=== PATIENT | male | born 1950 | race Caucasian/White ===

== ENCOUNTER 2017-05-06 10:06 | Emergency (ER) | payer MEDICARE, OTHER ==
--- NOTE | 2017-05-06 11:49 | XRAY Preliminary Report ---
Exam: XR Chest 2 View PA/LAT Impression: No evidence of infiltrate. [facility] SITE ID: [id number]
--- NOTE | 2017-05-06 11:51 | XRAY Report ---
EXAM: CHEST RADIOGRAPHY EXAM DATE: 05/06/2017 11:25 AM. CLINICAL HISTORY: Right lower chest pain. COMPARISON: None. TECHNIQUE: 2 views. FINDINGS: There are postoperative changes consistent with median sternotomy. The heart is not enlarged. There i s no focal infiltrate, pleural effusion or pneumothorax seen. Impression: No evidence of infiltrate. [facility] Referring Provider Line: [phone] SITE ID: [id number]
--- NOTE | 2017-05-06 11:56 | ED Physician Documentation ---
PD HPI CHEST PAIN - Stated complaint Stated Complaint: R SIDE RIB PX - Chief complaint Chief Complaint: Back Pain - History obtained from History obtained from: Patient - History of Present Illness Timing - duration: Days (5) Timing - details: Still present Quality: Aching Location: Right chest Improved by: Other medication (oxycodone) Worsened by: Movement, Position Similar symptoms before: Has not had sx before - Additional information Additional information: The patient is a 66-year-old male who presents with right lower chest pain that started 5 days ago after lifting sheets of plywood into place. His pain is worse with deep inspiration and with certain positions. He has experienced mild improvement after taking oxycodone. He denies cough or shortness of breath. He denies history of similar symptoms in the past. On further review of systems he reports a 30 pound weight loss over the past 6 months. He is scheduled for a GI workup next week as part of his outpatient evaluation for the recent weight loss. Review of Systems Constitutional: denies: Fever Nose: denies: Congestion Throat: denies: Sore throat Cardiac: reports: Chest pain / pressure. denies: Palpitations Respiratory: denies: Dyspnea, Cough GI: denies: Abdominal Pain, Nausea, Vomiting : denies: Dysuria Skin: denies: Rash Musculoskeletal: denies: Back pain, Extremity swelling Neurologic: denies: Focal weakness, Numbness, Headache Endocrine: reports: Weight loss PD PAST MEDICAL HISTORY - Past Medical History Cardiovascular: Hypertension, High cholesterol Respiratory: None Neuro: None Endocrine/Autoimmune: Type 2 diabetes Psych: Depression - Present Medications Home Medications: Ambulatory Orders Medication Instructions Recorded Confirmed Aspirin 81 mg PO DAILY 05/06/17 05/06/17 Atorvastatin Calcium [Lipitor] 80 mg PO DAILY 05/06/17 05/06/17 Ferrous Sulfate 325 mg PO DAILY 05/06/17 05/06/17 Fluoxetine HCl 20 mg PO DAILY 05/06/17 05/06/17 Insulin Regular Human [NovoLIN R] 18 units SQ TID 05/06/17 05/06/17 Losartan Potassium [Cozaar] 100 mg PO DAILY 05/06/17 05/06/17 Metformin HCl [Glucophage Xr] 500 mg PO DAILY 05/06/17 05/06/17 Metoprolol Tartrate [Lopressor] 100 mg PO BID 05/06/17 05/06/17 Omeprazole 40 mg PO DAILY 05/06/17 05/06/17 amLODIPine [Norvasc] 5 mg PO DAILY 05/06/17 05/06/17 hydroCHLOROthiazide [Hydrodiuril] 25 mg PO DAILY 05/06/17 05/06/17 - Allergies Allergies/Adverse Reactions: Allergies Allergy/AdvReac Type Severity Reaction Status Date / Time No Known Drug Allergies Allergy Verified 05/06/17 10:14 - Social History Does the pt smoke?: Yes Smoking Status: Former smoker PD ED PE NORMAL - Vitals Vital signs reviewed: Yes (normal) - General General: Alert and oriented X 3, Well developed/nourished - HEENT HEENT: Atraumatic, EOMI, Pharynx benign - Neck Neck: No adenopathy, No JVD - Cardiac Cardiac: RRR, No murmur - Respiratory Respiratory: No respiratory distress, Clear bilaterally, Other (There is mild tenderness to palpation of the right lower chest wall over the lower intercostal segments in the anterior axillary line. There is no bony step-off palpated, and no ecchymosis.) - Abdomen Abdomen: Soft, Non tender, No organomegaly - Back Back: No CVA TTP, No spinal TTP - Derm Derm: No rash - Extremities Extremities: No edema, No calf tenderness / cord - Neuro Neuro: Alert and oriented X 3, No motor deficit, No sensory deficit Results - Vitals Vitals: Vital Signs - 24 hr 05/06/17 05/06/17 10:11 12:12 Temperature 36.0 C L Heart Rate 63 78 Respiratory 16 16 Rate Blood Pressure 128/63 107/72 O2 Saturation 99 97 Oxygen O2 Source Room air - Rads (name of study) Chest x-ray Radiology: Prelim report reviewed, EMP read contemporaneously, See rad report ( No evidence of infiltrate.) PD MEDICAL DECISION MAKING - ED course Complexity details: reviewed results, re-evaluated patient, considered differential, d/w patient ED course: The patient's presentation is most consistent with strain of the right chest wall musculature. Chest x-ray reveals no evidence of pulmonary abnormality or abnormal rib architecture. I doubt pulmonary embolus. I discussed with the patient the expected course of healing, symptomatic treatment and outpatient follow-up, as well as potentially worrisome signs or symptoms that should prompt reevaluation in the emergency department. Departure - Departure Disposition: 01 Home, Self Care Clinical Impression: Chest wall pain Condition: Stable Instructions: ED Strain Chest Wall Follow-Up: Surya Russ MD [Primary Care Provider] - Comments: 1. Apply ice pack to the sore area intermittently for the next 3 days. 2. Continue using oxycodone as previously prescribed, if needed for pain. 3. Follow-up with your primary physician as planned. 4. Return to the emergency department if you develop increasing chest pain, shortness of breath, or otherwise worsening symptoms. Discharge Date/Time: 05/06/17 12:12
[2017-05-06 12:12] VITALS: BP 107/72
== END 2017-05-06 12:12 | disposition home or self-care (01) ==
LOC: ED 10:06
DX: R07.89 Other chest pain (principal); I10 Essential (primary) hypertension; E11.9 Type 2 diabetes mellitus without complications; Z79.84 Long term (current) use of oral hypoglycemic drugs; Z79.82 Long term (current) use of aspirin; Z79.4 Long term (current) use of insulin; Z87.891 Personal history of nicotine dependence
CPT/HCPCS: 71020; 99283

== ENCOUNTER 2017-07-21 18:00 | Outpatient (CLI) | payer MEDICARE ==
--- NOTE | 2017-07-21 19:26 | CONSULTATION NOTE ---
Palliative Care Consultation - Referral Referring Provider: Dr Rendon Time of Visit: 18:00 Referral setting: [facility] ([facility]) - Information Sources History obtained from: Patient, Caregiver Exam limitations: No limitations - History of Present Illness Brief History of Present Illness: Thank you, Dr. Rendon, for asking the palliative care consult service to be involved in the care of your patient. 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 This is a 67-year-old gentleman who was recently diagnosed with stage IV esophageal cancer, who was told his life expectancy was one year or less. He transferred on 07/15/17 to [facility] from [facility] in [place]. He has had spinal surgery involving 4 vertabrae to relieve pressure from a mass. He has been through 3 rounds of radiation, and stopped the third round due to pain and discomfort. He does not want to go through any more rounds of radiation, though he is still open to other forms of treatment. He does not know who his oncologist is; [place]. His DPOA and friend who he lives with, Lida Oliver, keeps track of everything medical. He is experiencing high levels of pain, rating it at 5/10 when its "good," but 10/10 when it spikes. It increases with PT. He has a fentanyl patch of 100mcg, and has been using 180mg of liquid morphine daily for the past several days ( 20mg about every 1-2 hours). He appears quite anxious about the pain, and does not know if the fentanyl patch is helping the pain, but does get relief from 20mg morphine and asked nursing to administer it every hour. He fears that it will increase and so he wants to get it regularly. His last dose was about an hour ago, and he does not appear to be drowsy, and his breathing and heartrate are normal. He says he has no appetite, and also has had no bowel movements for two weeks, but nursing confirmed he had a movement 5 days ago. He is participating in PT with the goal of being mobile enough to get in his wheelchair and go to his house to see his cat. He is diabetic but no longer on insulin or metformin. He is eating much less than previously. BG checks were reduced from TID to daily. Nursing reports his fasting BG in the morning is about 125. Information obtained from patient, nursing staff, and EMR chart notes. Medical/Surgical History - Past Medical History Cardiovascular: reports: Hypertension, High cholesterol Respiratory: reports: None Neuro: reports: None Endocrine/Autoimmune: reports: Type 2 diabetes Psych: reports: Depression MRSA Hx?: No Medications/Allergies - Medications Home Medications: Ambulatory Orders Medication Instructions Recorded Confirmed Fluoxetine HCl 20 mg PO DAILY 05/06/17 07/22/17 Guaifenesin [Mucinex] 600 mg PO DAILY 07/22/17 07/22/17 Hyoscyamine Sulfate 0.125 mg PO Q4H PRN 07/22/17 07/22/17 LORazepam [Ativan] 0.5 mg PO Q2H PRN 07/22/17 07/22/17 Magnesium Hydroxide [Milk of 30 ml PO DAILY PRN 07/22/17 07/22/17 Magnesia] Medpass 2.0 60 ml PO BID 07/22/17 Morphine Sulfate [Morphine Sulf 0.25 ml PO Q1H PRN 07/22/17 07/22/17 Oral (Roxanol)] Morphine Sulfate [Morphine Sulf 0.5 ml PO Q1H PRN 07/22/17 07/22/17 Oral (Roxanol)] Morphine Sulfate [Morphine Sulf 1 ml PO Q1H PRN 07/22/17 07/22/17 Oral (Roxanol)] Senna [Senokot] 1 - 2 tab PO DAILY PRN 07/22/17 07/22/17 fentaNYL 100 MCG PATCH [Duragesic 1,000 mcg TD MDD Q72hr 07/22/17 100mcg patch] - Allergies Allergies/Adverse Reactions: Allergies Allergy/AdvReac Type Severity Reaction Status Date / Time No Known Drug Allergies Allergy Verified 05/06/17 10:14 Palliative Care Pain: Location (back and epigastric region), Severity (baseline around 5/10, spikes to 10/10, taking 20mg of prn morphine about every 1-2 hours, along with a 100mcg fentanyl patch) Drowsiness: Mild (1-3) Nausea: None Anxiety: Mild (1-3) Dyspnea: None Anorexia: Moderate (4-6) ("no appetite," which may be pain related) Insomnia: Other (sometimes he sleeps well, but it depends on the pain) Feelings of wellbeing/Perceived Quality of Life: Worsening (pain level is the main barrier to perceiving a good quality of life) Performance Status: Previous level of function prior to this episode: Previous to 05/06/17 when he went to the ER for right-side rib pain exacerbated with lifting plywood sheets, he was relatively healthy. Current level of functioning: High pain levels, non-ambulatory, participates in PT which increases pain levels. Palliative Care Performance Status: 60% - Palliative Care Discussion: Who is present: The patient and myself. Surrogate decision maker: Friend/partner/DPOA Hailey Norris [phone]. Patient/Family understanding of the illness: Does have insight and understanding of the seriousness of his disease and that the prognosis is grim, one year or less. The diagnosis of cancer was totally unexpected, and he is still coming to terms with this life-changing development. He is very grateful his partner Hailey is by his side, and does not know what he would do without her. Presently the amount of pain he is in takes precedence over the deeper meaning of his cancer diagnosis, and its prognosis. He seems to have a level of acceptance and rational evaluation of his situation , and of being here in a nursing facility, and what he can realistically expect and achieve in terms of life quality. Information preferences: Communicate both with patient and his partner, Hailey. Most important goals: Get pain under control so he can continue physical therapy and regain enough mobility and strength to be mobile by wheelchair. He wants to be able to visit his house and hold his cat. Patient/family concerns: His main concern is controlling the pain. He is considering not undergoing further radiation, but is open to other treatment options. However, he does not want to unnecessarily prolong his life. We discussed various options for pain control. I recommended increasing his baseline pain control either by increasing the fentanyl patch or by adding a long-acting morphine TID, and continuing to use morphine prn for breakthrough pain. Since he does not want to take more pills, and fentanyl offers a steady dose of opioid, he agreed that increasing the fentanyl patch made sense. 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 The prognosis is grim, less than one year. His symptom burden is quite high currently, with pain and opioid-induced constipation, and his first goal is getting the pain under control. He is motivated to participate in PT to regain his mobility so he can enjoy visiting his house and his cat. Since he is open to further treatment, he is not currently a candidate for Hospice and is also at the SNF under Medicare, and so the Hospice benefit would not be covered while he is at [facility]. Recommendations/Counseling Done: 1. Pain from stage IV esophageal cancer, mets to bone and spine: Uncontrolled on 100mcg of fentanyl, and using approximately 180mg of liquid morphine every 24 hours (total MED of fentanyl + morphine = about 380mg). 100mcg fentanyl has a MED equivalent of about 200mg morphine, which is close to the prn morphine he is using every 24 hours. Hence increase the fentanyl by 100 mcg, to 200mcg total, so Fentanyl is now at 400mg MED. The intent is to reduce his usage of the prn morphine. Monitor for over-sedation and respiratory depression. Decrease the morphine prn dosing from 20mg to 5-10mg. 2. Constipation, opioid induced: No bowel movement in 24 hours. Start Miralax 17g in 4-8 oz liquid daily and Senna 17.2mg daily. 3. Anxiety: Lorazepam 2mg/mL. Use 0.25-1mg (0.25-05mL) bucally every 2-4 hours PRN 4. Advanced care planning: POLST in place: DNR, comfort only. Do not prolong life unnecessarily. Goals are to reduce pain and gain mobility to go home and visit his cat. He does not want to unnecessarily prolong his life, but may consider further treatment, so Hospice is not currently appropriate. Also it is not covered while he in in a half-way facility. Will revisit goals as disease progresses. Time Spent: 60 minutes with greater than 50% of this done in counseling and coordination of care, weighing benefits and burdens of different pain treatment options, and providing anticipatory guidance.
== END 2017-07-21 18:01 | disposition home or self-care (01) ==
LOC: PC 18:00
PROVIDERS: ATTEND Nurse Practitioner
DX: Z51.5 Encounter for palliative care (principal); G89.3 Neoplasm related pain (acute) (chronic); C15.9 Malignant neoplasm of esophagus, unspecified; C79.51 Secondary malignant neoplasm of bone; K59.03 Drug induced constipation; T40.2X5D Adverse effect of other opioids, subsequent encounter; F41.9 Anxiety disorder, unspecified; Z79.891 Long term (current) use of opiate analgesic; E11.9 Type 2 diabetes mellitus without complications; F32.9 Major depressive disorder, single episode, unspecified; R63.0 Anorexia; Z66 Do not resuscitate
CPT/HCPCS: 99306

== ENCOUNTER 2017-07-26 09:00 | Outpatient (CLI) | payer MEDICARE, OTHER ==
[2017-07-26 19:55] LABS: BASOPHILS % (AUTO) 0.4 %; EOSINOPHILS # (AUTO) 0.4 10^3/uL (0.0-0.7); EOSINOPHILS % (AUTO) 3.3 %; HCT - HEMATOCRIT 38.6 % (42.0-52.0); HGB - HEMOGLOBIN 12.6 g/dL (14.0-18.0); LYMPHOCYTES # (AUTO) 1.4 10^3/uL (1.5-3.5); LYMPHOCYTES % (AUTO) 12.4 %; MEAN CORPUSCULAR HEMOGLOBIN 24.4 pg (27.0-31.0); MEAN CORPUSCULAR HGB CONC 32.6 g/dL (32.0-36.0); MEAN PLATELET VOLUME 7.6 fL (7.4-11.4); MONOCYTES # (AUTO) 0.8 10^3/uL (0.0-1.0); MONOCYTES % (AUTO) 7.1 %; NEUTROPHILS # (AUTO) 8.7 10^3/uL (1.5-6.6); NEUTROPHILS % (AUTO) 76.8 %; NUCLEATED RED BLOOD CELLS AUTO 0.1 /100WBC; RED BLOOD COUNT 5.15 10^6/uL (4.70-6.10); RED CELL DISTRIBUTION WIDTH 21.6 % (12.0-15.0); UNCORRECTED WHITE BLOOD COUNT 11.4 x10^3/uL; WHITE BLOOD COUNT 11.4 x10^3/uL (4.8-10.8)
[2017-07-26 19:59] LABS: CALCIUM 8.7 mg/dL (8.5-10.3); CREATININE 0.5 mg/dL (0.6-1.2); POTASSIUM 3.1 mmol/L (3.5-5.0)
[2017-07-26 20:15] LABS: PLATELET ESTIMATE, MANUAL NORMAL (130-450,000) (NORMAL); PLATELET MORPHOLOGY NORMAL APPEARANCE (NORMAL); WBC MORPHOLOGY (MULTIPLE) NORMAL APPEARANCE (NORMAL)
== END 2017-07-26 09:01 | disposition home or self-care (01) ==
LOC: LAB.R 09:00
DX: C15.9 Malignant neoplasm of esophagus, unspecified (principal); D50.9 Iron deficiency anemia, unspecified; E44.0 Moderate protein-calorie malnutrition
CPT/HCPCS: 80048; 85025

== ENCOUNTER 2017-07-26 13:00 | Outpatient (CLI) | payer MEDICARE ==
--- NOTE | 2017-07-26 17:20 | PROVIDER PROGRESS NOTE ---
Palliative Care Follow Up - Referral Referring Provider: Dr Rafiq Rendon Time of Visit: 13:00 Referral setting: Senior Living Facility ([facility]) - Information Sources History obtained from: Patient, Family, Caregiver Exam limitations: Clinical condition (Patient groggy.) - History of Present Illness Update Brief HPI Update: [id number] Due to unstageable pressure ulcer on coccyx as a result of Stage IV metastasized esophageal cancer with sequelae of functional decline, incontinence , and nutritional compromise, patient is completely immobile in bed and requires an AP mattress to promote healthy skin integrity as well as reduce occurrence of decubitus ulcers while in bed. See Physical Exam section for details of wounds. This is a 67-year-old gentleman who was diagnosed in May 2017 with stage IV esophageal cancer, metastasized to bone, spine, lungs, and told his prognosis was 1 year or less. He was establishing care with Dr Girish Brooks of [facility] in [place] at which point he reported minimal PO intake, abdominal pain, and dysphagia and was admitted for gastrostomy tube placement, which was achieved without complication, however, he later developed some high residuals. Tube feedings were held and then resumed with reasonable tolerance. He continued to have ongoing severe pain in his chest and abdomen. Radiation oncology was consulted and he was started on XRT for two treatments (06/27 and 06/28). After the first episode of radiation he had worsening LE weakness and low back pain with urinary retention, this prompted spinal imagining which showed diffuse metastasis involving the T-spine with cord compression. On 06/29 he underwent surgery for T6-T8 laminectomy/ decompression and excision of an epidural mass. He was initially discharged to [facility] in [place], and from there transferred on 07/15/17 to [facility]. He continues to experience pain in his thorax, this is after I doubled the fentanyl patches from 100mcg to 200mcg. He was previously on 100mcg and using around 180mg of prn morphine daily at 20mg (1mL) dosing at a time. After increasing the fentanyl, his morphine usage is lower, he is being given approximately 70-100mg morphine daily, in 10mg doses. However, he reports the breakthrough pain is not controlled. The description is left side of torso has shooting pain which morphine relieves, the R side is a constant pain. He is unable to say how much fentanyl is relieving his pain, but he does get pain relief with morphine, for the shooting pains. The morphine is given either buccally or sublingual, he is taking all his medications by mouth currently, per Nursing, not via PEG. He continues to eat very little, just protein shakes, and is taking very little of that. The facility has an order for tube flushing with 150ml of water every 4 hours, so nearly 1 liter every 24 hours. He has lost 14 pounds in two weeks ( 188 lbs on 07/08 and 174.9 lbs on 07/21). The box spring upholsterer and PYROTECHNIST spent a considerable amount of time with him today, discussing his tube feeding, diet, weight loss. He did express that when he was given tube feedings prior to coming here, he felt it was forced feeding and out of his control; this was even though he had requested a PEG tube. Shell Press Operator assured him that they will follow his wishes here. He is in agreement to have the protein shakes, but continues to refuse any other food. He has repeatedly stated he does not want any more food than that, he cannot tolerate the thought of food, he denies nausea, and does not want to be fed by tube. At other times, though, he has told nursing he would agree to increased tube feeding. This vascillation is also observed in his indecisiveness about pursuing further treatment. He has mentioned to several different people (box spring upholsterer, nursing) some interest in physician-assisted suicide. He mentioned this to me today. When questioned about what he actually wanted, it is not but relief from pain. I asked him if his pain was under control, would he still want to , and he said no. He is still participating in physical therapy and is very weak. Yesterday he was not able to get up from a reclining position. Today he was able to use the [id number] transfer machine and stay upright for 2 minutes, which was some improvement. However, his lower extremities continue to be very weak. The sutures on his spinal incision were removed 07/25, and there is some dehiscence (2cm x 0.5cm) at the lower end of the incision, with redness and tenderness surrounding it. Nursing also reports pink discoloration on bilateral heels and a small coccyx wound. Information obtained from patient, nursing staff, and EMR chart notes from [facility]. Social History - Living Situation Living arrangement: longterm ([facility]) Living Situation: With caregiver(s) Support System: Hailey Oliver, his life partner, and her sister and brother in law, Italo and Carlin Solo. Medications/Allergies - Medications Home Medications: Ambulatory Orders Medication Instructions Recorded Confirmed Fluoxetine HCl 20 mg PO DAILY 05/06/17 07/22/17 Guaifenesin [Mucinex] 600 mg PO DAILY 07/22/17 07/22/17 Hyoscyamine Sulfate 0.125 mg PO Q4H PRN 07/22/17 07/22/17 LORazepam [Ativan] 0.5 mg PO Q2H PRN 07/22/17 07/22/17 Magnesium Hydroxide [Milk of 30 ml PO DAILY PRN 07/22/17 07/22/17 Magnesia] Medpass 2.0 60 ml PO BID 07/22/17 Morphine Sulfate [Morphine Sulf 0.25 ml PO Q1H PRN 07/22/17 07/22/17 Oral (Roxanol)] Morphine Sulfate [Morphine Sulf 0.5 ml PO Q1H PRN 07/22/17 07/22/17 Oral (Roxanol)] Morphine Sulfate [Morphine Sulf 1 ml PO Q1H PRN 07/22/17 07/22/17 Oral (Roxanol)] Senna [Senokot] 1 - 2 tab PO DAILY PRN 07/22/17 07/22/17 Fentanyl [Fentanyl 100mcg patch] 200 mcg TD Q72H 07/26/17 07/26/17 - Allergies Allergies/Adverse Reactions: Allergies Allergy/AdvReac Type Severity Reaction Status Date / Time No Known Drug Allergies Allergy Verified 05/06/17 10:14 Review of Systems - Constitutional Constitutional: reports: Weakness, Poor appetite, Weight loss - Ears, Nose & Throat Ears, Nose & Throat: reports: Mouth lesions (dry, chapped lips) - Cardiovascular Cariovascular: reports: Chest pain - Gastrointestinal Gastrointestinal: reports: Constipation, Poor appetite. denies: Nausea - Musculoskeletal Musculoskeletal: reports: Back pain, Other (Pain in thorax: shooting pain on L side, constant pain on R side) - Neurological Neurological: reports: General weakness Physical Examination - Vital Signs Temperature: 96.3 C Pulse Rate: 101 O2 Saturation: 92 Blood Pressure: 155/82 - Physical Exam General Appearance: positive: Moderate distress (in pain), Anxious, Other (Mild to moderate sedation from opioid intake, still grimaces and clenches with pain when moved or repositioned.) ENT: positive: Dry mucous membranes Neck: positive: No JVD Respiratory: positive: Breath sounds nml Cardiovascular: positive: Regular rate & rhythm, Tachycardia Abdomen: positive: Non-tender Skin: positive: Other (Coccyx wound 1 x 0.5 x 0.2cm white wound bed,open wound intact with pink blanchable tissue dianna-wound. Bilateral blanchable pink heels. Dehiscence and redness on lower portion of spinal incision wound.) Extremities: positive: No pedal edema Neurologic/Psychiatric: positive: Disoriented to time, Weakness, Slurred/abnml speech (mumbles; difficult to hear and understand), Depressed mood/affect (flat affect) Palliative Care - POLST Patient has POLST: Yes POLST Status: DNR, Comfort Measures Pain: Pain unchanged (Still complains of pain and wants morphine every 1-2 hours. PRN dosing has been less, 10mg instead of 20mg) Drowsiness: Moderate (4-6) Nausea: None Anxiety: Mild (1-3) Dyspnea: Mild (1-3) (caused by pain) Anorexia: Severe (7-10) (no appetite, hardly eating anything) Insomnia: Sleeps poorly (slept poorly last night) Constipation: Yes Feelings of wellbeing/Perceived Quality of Life: Comment (Main goal is to decrease the pain) Performance Status: Current level of functioning: Declining, with continued weakness in lower extremities, still participates in PT as best he can. Pain levels still high; morphine dosage is lower than previous usage levels, but likely because [facility] nursing is giving him less than before (10mg, not 20mg). He is eating almost nothing and has lost significant weight, including 14 lbs since Jul 08. He is around 175 lbs; he used to be well over 200 lbs. At this rate, life expectancy would be weeks to months. Palliative Care Performance Status: 60% - Palliative Care Discussion: Who is present: The patient and myself, and temporary DPOA Italo Solo and her . Surrogate decision maker: Friend/partner/DPOA Hailey Norris [phone]. She is in [place] for two weeks. During her absence, her sister is the acting DPOA from 07/25/17 to 08/07/17: Italo Solo: home [phone]. . Patient/Family understanding of the illness: Patient does have some insight and understanding of the seriousness of his disease, but may not be realistic about the rapidity of his decline or life expectancy, which is likely weeks. He vascillates between denying he will pursue further treatment and saying he will consider it once his pain is under control. Unrealistic regarding the connection between nutritional/caloric requirements, refusing tube feeding and rapidly increasing weakness and functional decline. Pain control is the high priority. His DPOA understands his situation is terminal and recognizes that his decline has been very rapid. Offered supportive counseling. Most important goals: Pain control. Results - Lab Results Lab results reviewed: Yes Lab and Imaging Results: 07/26/17: Hct 38.6 L MCV 75.0 L MCH 24.4 L RDW 21.6 H Plt 362 Neut 8.7 H Lymph 1.4 Na 126 L K 3.1 L Cl 25 Co2 25 BUN 10 Creat 0.5 L (0.6-1.2) GFR 166 Impression and Recommendations - Palliative Care Impression: This is a 67-year-old man with stage IV esophageal cancer metastasized to spine and bone. He is very weak and has severe anorexia, which is further contributing to his generalized weakness. His pain continues to be uncontrolled , with some portion of it likely attributable to anxiety, and decreasing the pain to manageable levels is his main concern. Recommendations/Counseling Done: 1. Pain from stage IV esophageal cancer, mets to bone and spine: Still uncontrolled. Fentanyl patch was increased to 200mcg 5 days ago. Increase it again to 250mcg. Current morphine usage is 10mg 7 to 10 times daily (70-100mg/ 24 hrs). Monitor effects of increased fentanyl, and if indicated increase PRN morphine doses back up to 20mg each dose. One option is to start decadron steroid for bone pain, but since he has skin wounds and severely decreased protein and caloric intake, this would be high risk for his already compromised skin. 2. Constipation, opioid induced: Bowel movement 4 days ago; give PRN dulcolax suppository. Increase Senna from 17.2mg daily to 17.2mg BID. Hold for loose stools 3. Anxiety: Lorazepam 2mg/mL. Use 0.25-1mg (0.25-05mL) bucally every 2-4 hours PRN. Recommend to nursing to give preference to morphine for keeping pain under control, since his anxiety is due to pain levels, plus Lorazepam increases sedation. 4. Dehiscence of spinal incision: Ordered BMP and CBC w / diff which revealed elevated WBCs and neuts, and stable kidney function (see Results). Start Keflex 500mg cap PO or Per PEG BID x 7 days for infection of spinal incisions. Consulted with PCP, Dr Rendon, who agreed with plan for antibiotics. 5. Bilateral heel wounds: Bilateral heels are blanchable and pink. Have DPOA purchase two fabric covered heel guard boots with velcro to protect heels. 6. Coccyx wound, unstageable: 1 x 0.5 x 0.2cm. Apply zinc oxide barrier cream BID to affected area. Reposition patient every 2 hours. Use no dressing since it will cause more harm than good on the coccyx. Order an AP mattress ( see [id number] under HPI). 7. Advanced care planning: First priority is pain control. He has expressed interest in physician assisted suicide, but states it is because he doesnt want to live with the pain. If he were pain free he would not be interested in pursuing it. Time Spent: 60 minutes with greater than 50% of this done in counseling and coordination of care with box spring upholsterer, PYROTECHNIST, nursing, PCP, and evaluation of benefits and burdens of different interventions for infection, compromised skin, and pain management. treatments. Provided anticipatory guidance to interim DPOAs.
== END 2017-07-26 13:01 | disposition home or self-care (01) ==
LOC: PC 13:00
PROVIDERS: ATTEND Nurse Practitioner
DX: Z51.5 Encounter for palliative care (principal); G89.3 Neoplasm related pain (acute) (chronic); C15.9 Malignant neoplasm of esophagus, unspecified; C79.51 Secondary malignant neoplasm of bone; K59.03 Drug induced constipation; T40.2X5D Adverse effect of other opioids, subsequent encounter; F41.9 Anxiety disorder, unspecified; T81.31XA Disruption of external operation (surgical) wound, not elsewhere classified, initial encounter; L89.150 Pressure ulcer of sacral region, unstageable; R32 Unspecified urinary incontinence; Z74.01 Bed confinement status; Z93.1 Gastrostomy status; R63.0 Anorexia; Z79.891 Long term (current) use of opiate analgesic; R63.4 Abnormal weight loss; M62.81 Muscle weakness (generalized); Z66 Do not resuscitate
CPT/HCPCS: 99310

== ENCOUNTER 2017-07-28 12:30 | Outpatient (CLI) | payer MEDICARE ==
--- NOTE | 2017-07-28 21:30 | CONSULTATION NOTE ---
Palliative Care Follow Up - Referral Referring Provider: Dr Rendon Referral setting: [facility] - Information Sources History obtained from: Patient, Friend, Caregiver (Nursing staff) Exam limitations: Clinical condition (lack of mental clarity secondary to opioid dosage) - History of Present Illness Update Brief HPI Update: This is a 67-year-old gentleman who was diagnosed in May 2017 with stage IV esophageal cancer, metastasized to bone, spine, lungs, and told his prognosis was one year or less. He reported dysphasia and had a PEG tube placed. He had 2 treatments of radiation in June and has had it on hold since then he also has had a surgery for a mass on his spine at T6-T8 laminectomy/decompression and excision of an epidural mass. He transferred to [facility] on 2016 he has been requesting and having physical therapy in the hopes of regaining his lower extremity strength. His main concern and issue is getting pain under control. He has under high level of opioids currently: Fentanyl dermal patches 250 mcg and morphine 20 mg solution for breakthrough pain. I have nursing administering 20 mg grams every 2 -3 hours and closely monitoring pain response. Physical pain is being amplified by his emotional pain. This morning he had adamantly said he wanted to restart tube feedings which he had not been having since coming here. His is losing weight. There was considerable discussion with his acting DPOA Italo Solo, nursing staff and myself and the patient regarding resuming tube feedings. His mental clarity is cloudy with the opioid regimen, something he recognizes and he states he has a hard time keeping all the facts straight. Myself and one of the facility nurses , Joanna MAIER, spoke to him and his reiterated that can tube feeding well prolonged his life and prolong his pain. The understanding is that he is not happy or satisfied with the current state of his situation in the correction and living with the cancer pain. He agreed with this. I spoke with Italo PRESSLEY who is supportive of not restarting tube feeding. Patient has an infection of his spinal incision and compromised skin; see Recommendations. Social History - Living Situation Living arrangement: [facility] Living Situation: With caregiver(s) Support System: His Life partner, Hailey Norris, is currently in [place] for two weeks. Her sister, Italo Solo, is acting DPOA, and her , Carlin, they visit regularly. Medications/Allergies - Medications Home Medications: Ambulatory Orders Medication Instructions Recorded Confirmed Fluoxetine HCl 20 mg PO DAILY 05/06/17 07/29/17 Guaifenesin [Mucinex] 600 mg PO DAILY 07/22/17 07/29/17 Hyoscyamine Sulfate 0.125 mg PO Q4H PRN 07/22/17 07/29/17 LORazepam [Ativan] 0.5 mg PO Q2H PRN 07/22/17 07/29/17 Magnesium Hydroxide [Milk of 30 ml PO DAILY PRN 07/22/17 07/29/17 Magnesia] Medpass 2.0 60 ml PO BID 07/22/17 07/29/17 Morphine Sulfate [Morphine Sulf 0.25 ml PO Q1H PRN 07/22/17 07/29/17 Oral (Roxanol)] Morphine Sulfate [Morphine Sulf 0.5 ml PO Q1H PRN 07/22/17 07/29/17 Oral (Roxanol)] Morphine Sulfate [Morphine Sulf 1 ml PO Q1H PRN 07/22/17 07/29/17 Oral (Roxanol)] Senna [Senokot] 1 - 2 tab PO DAILY PRN 07/22/17 07/29/17 Fentanyl [Fentanyl 100mcg patch] 250 mcg TD Q72H 07/26/17 07/29/17 Cephalexin [Keflex] 500 mg PEG BID 07/29/17 07/29/17 LORazepam [Ativan] 0.5 mg PEG DAILY 07/29/17 07/29/17 - Allergies Allergies/Adverse Reactions: Allergies Allergy/AdvReac Type Severity Reaction Status Date / Time TYLER Inhibitors AdvReac Unknown Unknown Verified 07/29/17 02:15 codeine AdvReac Unknown Unknown Verified 07/29/17 02:15 omeprazole AdvReac Unknown Unknown Verified 07/29/17 02:15 oxycodone AdvReac Unknown Unknown Verified 07/29/17 02:15 Review of Systems - Constitutional Constitutional: reports: Weakness, Poor appetite, Weight loss - Eyes Eyes: reports: Corrective lenses - Cardiovascular Cariovascular: reports: Chest pain, Decr. exercise tolerance - Gastrointestinal Gastrointestinal: reports: Poor appetite - Genitourinary Genitourinary: reports: Other (Julian catheter) - Integumentary Integumentary: reports: Other (blanchable pink heels; coccyx pressure ulcer) - Psychiatric Psychiatric: reports: Depression, Anxiety, Other (Emotional pain) Physical Examination - Vital Signs Temperature: 97.6 F Pulse Rate: 94 O2 Saturation: 96 Blood Pressure: 132/84 - Physical Exam General Appearance: positive: Moderate distress, Anxious Eyes Bilateral: positive: No lid inflammation, Conjunctivae nml, No scleral icterus ENT: positive: Dry mucous membranes (dry lips) Neck: positive: No JVD, Trachea midline Respiratory: positive: No respiratory distress, Breath sounds nml Abdomen: positive: No distention Skin: positive: Other (dehiscence of incision, coccyx wound, reddened heels.) Extremities: positive: Non-tender, No pedal edema Neurologic/Psychiatric: positive: Disoriented to time, Other (Tearful, upset at times) Palliative Care - POLST Patient has POLST: Yes POLST Status: DNR, Comfort Measures Pain: Pain unchanged, Location (Rib area, and on incision on back), Severity ( Still complains he is in pain.) Drowsiness: Moderate (4-6) Nausea: None Anxiety: Moderate (4-6) Dyspnea: None Anorexia: Moderate (4-6) Feelings of wellbeing/Perceived Quality of Life: Worsening (He admits going through emotional pain about his mortality, and it is increasing his physical pain.) Performance Status: Current level of functioning: Bedbound, increasingly weak, significant lower extremity weakness, does not sit up due to pain. High pain levels, anxiety, and emotional pain. Eating very little. Palliative Care Performance Status: 60% - Palliative Care Discussion: Who is present: The patient and myself, and friend Carlin Solo. Surrogate decision maker: Friend/partner/DPOA Hailey Norris [phone]. She is in [place] for two weeks. During her absence, her sister is the acting DPOA from 07/25/17 to 08/07/17: Italo Solo: home [phone]. . Patient/Family understanding of the illness: Lacking clarity of mind and "not thinking straight" secondary to high opioid dosage. Is struggling to come to terms with mortality and what he has to look forward to. He is tearful and admits he is feeling "emotional pain," and has the correct insight that it is intensifying his physical pain, and shows up in his chest. But for the physical pain, he does not understand or believe when he is told that this is cancer pain. His thinking isn't clear and it swerves wildly , with conflicting, confused, and contradictory wishes and statements, but he still expresses the thought that he can get strong enough through PT so he can be mobile in a wheelchair, an unrealistic assessment or understanding. See below for further discussion. Most important goals: Pain control and comfort. He was just transferred to a new room, currently without a roommate and his sleep was better. His friend, Italo, was able to bring his cat to his room today -- seeing his cat was one of his goals. Yesterday his transdermal Fentanyl was increased by 50mcg (current total is 250mcg/hr) and concentration gradually increases over 12-24 hours, so it should be at steady state today. During the night he was given 1mL (20mg) morphine about every 2-3 hours. This morning he reported feeling better so the nurse administered 10mg morphine. I have spoken to nursing, instructing them to give him the 20mg dosing level every 2-3 hours. He is clearer in speech today. Patient/family concerns: The patient refused several offers of Data Administrator services (he doesn't like the "hypocrisy" of tenriism), however, Italo the acting DPOA requested that he does come. She knows the patient loves to talk and feels he would benefit. I agree with this and made a referral to the [facility] care mortuary technician. His emotional pain is significant at this time, and he was tearful today about his impending , reviewing his life, and struggling with what he is going through. The other concern is patient's indecision and confusing over restarting tube feeding. This morning nursing and Italo reported he was adamant he wanted to restart tube feeding. When questioning him about this though, he was unclear and contradicted himself and wanted another meeting. There have been several discussions among the RD, speech pathology, BRAND ENGINEER, nursing, and DPOA over the past several days. Today ISABEL Degroot and I spoke with him, clarifying and reiterating his statements that he is not happy the way he is living currently, and doesn't want to continue "this life in bed" with this pain, and that tube feeding will prolong this state, very likely without delivering the benefit he is hoping for (increased strength so he can sit up, get in wheelchair and be mobile) due to the progression and pain levels of his cancer. He expressed verbal understanding and agreement with this. Italo, DPOA, is supportive of not restarting tube feeding and unnecessary prolongation of life. She was concerned that restarting will prolong his suffering and will not achieve his goal of improving his comfort and increasing strength and functionality. Impression and Recommendations - Palliative Care Impression: This is a 67 year-old man with advancing stage IV metastasized esophageal cancer with high symptom burden of pain. He has confused and unclear thinking due to the cancer pain and the opioid intervention. His physical pain is intensified by emotional, existential pain and he would benefit from mortuary technician visits to be able to talk with someone. His pain medications are still in process of being titrated, and restarting tube feeding would likely prolong his suffering without adding benefit or relief. Recommendations/Counseling Done: 1. Cancer pain, stage IV esophageal mets to bone, spine: Fentanyl increased to 250mcg on 07/27, give 1ml (20mg) morphine q2-3 hr, continue to titrate as needed to achieve comfort without over sedation. 2. Anxiety: Schedule 0.5mg lorazepam daily in morning, continue 0.5mg q2h PRN. 3. Constipation, opioid induced: Increase Senna to 17.2mg BID. Had nursing administer the Dulcolax suppository today, it has been over 3 days since a bowel movement. 4. Dehiscence/infection of spinal incision: Continue Keflex course. 5. Coccyx wound, unstageable: AP mattress ordered by palliative care, continue zinc oxide barrier, facility wound care nurse to monitor. 6. Bilateral heel wounds: Gauze wrapping. DPOA has ordered two fabric covered heel guard boots with velcro. 7. Dysphagia: Patient is indecisive and contradictory on restarting tube feeding. Discussed and reiterated his goals in light of the progress of the cancer, he agreed on no tube feeding. DPOA supports this. Time Spent: 60 minutes with greater than 50% of this done in counseling regarding goals of care and coordination of care with nursing and DPOA and evaluation of benefits and burdens of different interventions for dysphagia, anorexia, pain, anxiety.
== END 2017-07-28 12:31 | disposition home or self-care (01) ==
LOC: PC 12:30
PROVIDERS: ATTEND Nurse Practitioner
DX: Z51.5 Encounter for palliative care (principal); G89.3 Neoplasm related pain (acute) (chronic); C15.9 Malignant neoplasm of esophagus, unspecified; C79.51 Secondary malignant neoplasm of bone; C78.00 Secondary malignant neoplasm of unspecified lung; F41.9 Anxiety disorder, unspecified; K59.03 Drug induced constipation; T40.2X5D Adverse effect of other opioids, subsequent encounter; T81.31XD Disruption of external operation (surgical) wound, not elsewhere classified, subsequent encounter; L89.150 Pressure ulcer of sacral region, unstageable; R13.10 Dysphagia, unspecified; Z93.1 Gastrostomy status; Z79.891 Long term (current) use of opiate analgesic; R63.4 Abnormal weight loss; R63.0 Anorexia; Z96.0 Presence of urogenital implants; F32.9 Major depressive disorder, single episode, unspecified; R41.0 Disorientation, unspecified; Z66 Do not resuscitate; Z74.01 Bed confinement status; M62.81 Muscle weakness (generalized)
CPT/HCPCS: 99310

== ENCOUNTER 2017-08-01 14:00 | Outpatient (CLI) | payer MEDICARE ==
--- NOTE | 2017-08-01 20:16 | CONSULTATION NOTE ---
Palliative Care Follow Up - Referral Referring Provider: Dr. Rendon Time of Visit: 6628-7517 Referral setting: Detention Facility Referral Reason: Metastatic Esophageal Cancer - Information Sources Records Reviewed: RN notes reviewed, Old records reviewed History obtained from: Patient, Family (Italo Solo and her have been coming daily;), Caregiver (follow up dependent on clinical staff;) Exam limitations: Clinical condition (patient able to answer some questions; but somewhat confused) - History of Present Illness Update Brief HPI Update: This is a complicated 67-year-old gentleman with metastatic esophageal cancer poorly differentiated. He was diagnosed in May 2017 and on EGD was shown to have a large fungating necrotic bleeding esophageal mass in the lower third of his esophagus causing complete obstruction. His treatment history has been complicated, he did start radiation therapy to address his ongoing severe pain in his chest and abdomen. Unfortunately he is unable to complete when episode, at which point in time he presented with spinal cord compression with thoracic spinal metastases and epidural extension and cord compression. He did undergo a laminectomy T6-T8 with decompression and excision of the epidural mass. He does have known metastatic disease as well. He did have a G-tube placed on but had many complications as far as being able to tolerate tube feeHe has also been somewhat ambiguous as far as pursuing further workup or treatment, continuing her restarting tube feedings, and has restated his goals frequently as wanting to be more comfortable. He has had fairly severe pain, has been compounded by his anxiety, and his declining cognitive and functional status. Today he presents with symptoms of further bleeding. I suspect it is his necrotic tumor. He does have black residual in his gastric tube. Is also reported he had a dark stool a few days ago. He has had nausea and vomiting today, he remains quite uncomfortable, and still perceives his pain is poorly controlled. He does express as far as goals "I have given up, I just wanted to be over". He does perceive himself as suffering. He denies being fearful or afraid of dying, it is unclear if he understands the current seriousness of his situation but seems at peace when discussed plan for palliation. Social History - Living Situation Living arrangement: [facility] (Patient previously has lived at home with his partner of 25 years, Hailey Norris, who is currently in [place] for 2 weeks. Her sister is acting DPOA.) Medications/Allergies - Medications Home Medications: Ambulatory Orders Medication Instructions Recorded Confirmed Fluoxetine HCl 20 mg PO DAILY 05/06/17 08/01/17 Hyoscyamine Sulfate 0.125 mg PO Q4H PRN 07/22/17 08/01/17 LORazepam [Ativan] 1 mg PO QID PRN 07/22/17 08/01/17 Morphine Sulfate [Morphine Sulf 20 mg PO Q1H PRN 07/22/17 08/01/17 Oral (Roxanol)] Senna [Senokot] 2 tab PO TID 07/22/17 08/01/17 Fentanyl [Fentanyl 100mcg patch] 300 mcg TD Q72H 07/26/17 08/01/17 LORazepam [Ativan] 1 mg PEG Q6HR 07/29/17 08/01/17 Acetaminophen 650 mg MD Q6HR PRN 08/01/17 08/01/17 Fluconazole [Diflucan] 100 mg PEG DAILY 08/01/17 08/01/17 Omeprazole 20 mg PEG DAILY 08/01/17 08/01/17 Polyethylene Glycol 3350 [Miralax] 17 mg PEG BID 08/01/17 08/01/17 Prochlorperazine Maleate 10 mg PEG Q6HR 08/01/17 08/01/17 [Compazine] - Allergies Allergies/Adverse Reactions: Allergies Allergy/AdvReac Type Severity Reaction Status Date / Time TYLER Inhibitors AdvReac Unknown Unknown Verified 07/29/17 02:15 codeine AdvReac Unknown Unknown Verified 07/29/17 02:15 oxycodone AdvReac Unknown Unknown Verified 07/29/17 02:15 Review of Systems - Constitutional Constitutional: reports: Fatigue, Weakness, Poor appetite, Weight loss - Eyes Eyes: reports: Vision loss - Ears, Nose & Throat Ears, Nose & Throat: reports: Mouth lesions (patient c/o dry uncomfortable mouth despite nystatin; suspect unable to use properly) - Cardiovascular Cariovascular: reports: Chest pain (dull ache across chest area; band width through ribs/back/abdomen), Decr. exercise tolerance - Respiratory Respiratory: reports: SOB with exertion - Gastrointestinal Gastrointestinal: reports: Abdominal pain, Constipation, Black stools, Nausea, Vomiting, Coffee grounds emesis (and in PEG tube), Reflux/heartburn - Genitourinary Genitourinary: reports: Other (osborn) - Musculoskeletal Musculoskeletal: reports: Back pain, Muscle aches, Stiffness, Muscle weakness - Integumentary Integumentary: reports: Other (surgical incision; stage II decub coccyx) - Neurological Neurological: reports: General weakness, Memory problems (able to answer some questions; inconsistent in responses;), Slurred speech - Psychiatric Psychiatric: reports: Depression, Anxiety - Endocrine Endocrine: reports: Intolerance to heat - Hematologic/Lymphatic Hematologic/Lymphatic: reports: Recurrent infections (currently treated for surgical infection spine) - All Other Systems All Other Systems: reports: Reviewed and negative Physical Examination - Vital Signs Temperature: 96.7 C Pulse Rate: 88 Respiratory Rate: 20 O2 Saturation: 95 (on room air) Blood Pressure: 172/98 - Physical Exam General Appearance: positive: Moderate distress, Lethargic, Cachetic Eyes Bilateral: positive: Other (difficult focusing). negative: No scleral icterus ENT: positive: Pharyngeal erythema, Oral lesions (bright red with lesions; white patches), Dry mucous membranes Neck: positive: Trachea midline, Stiff neck Respiratory: positive: Other (diminished throughout; no air movement in bases; assume probable pleural effusions) Cardiovascular: positive: Tachycardia Abdomen: positive: Tenderness, Guarding, Abnml bowel sounds (decreased), Other ( PEG tube with check for residual black fluid; flush induced nausea and dry heaves; no choking but more difficult to swallow; taking sips of water only) Skin: positive: Pallor, Dryness Extremities: positive: Other (feet and hands cold to touch) Neurologic/Psychiatric: positive: Disoriented to person, Disoriented to place, Disoriented to time, Weakness, Depressed mood/affect Palliative Care - POLST Patient has POLST: Yes POLST Status: DNR, Comfort Measures Pain: Pain worsening, Location (describes band across chest/back/abdomen; severe in intensity; gets some relief with intermittent morphine;) Drowsiness: Moderate (4-6) (easily aroused; sleeping most of the time) Nausea: Severe (7-10), With vomiting Anxiety: Moderate (4-6) Dyspnea: Mild (1-3) Anorexia: Severe (7-10), Weight loss Constipation: Yes, Opoid induced, Unmanaged Feelings of wellbeing/Perceived Quality of Life: Worsening Performance Status: Current level of functioning [maximum assist with adls, PT no longer offering as patient cannot participate]. Palliative Care Performance Status [20]. - Palliative Care Discussion: Surrogate decision maker-Italo Holley-is Acting DPOA [phone]/mobile [phone]. His friend and partner Lida Norris is in [place] for 2 weeks, Italo has been texting her and keeping her updated on a regular basis. Patient has taken a turn for the worse, presents with GI bleeding most likely from his necrotic tumor. He does feel like he is suffering, and wants this over as soon as possible. It is unclear if he recognizes the seriousness of his current situation, but is feeling quite miserable with the addition of the nausea and vomiting. When asked about Lida's return, which is on Tuesday, he said "cannot hold out much longer", and she will understand. When asked if there is anyone or anything as far as things that are important for him at end of life, he said not really. He said his close friends are Italo and Carlin and he is been in contact with them. When asked what he might want to do as far as saying goodbye to Lida, he said he is planning to ride in a letter. I shared with him, my concern that this may not be possible, and asked if there might be some things I might write down for him. He said they did have "issues" but that he "I love her" and she knows. He wanted to thank her for all the ups and downs in the amazing times. He also said he liked her sense of humor. I did pass this on to her sister. We discussed goals with him. And weighing benefits and burdens, he would prefer not to experience suffering or anxiety and prefers to be sedated and kept more comfortable. I did call and speak with Italo, they had been there visiting earlier, and aware of his nausea and vomiting, and explained most likely it is his tumor bleeding. In the context of goals, she is much in favor of focusing on easing his suffering and keeping him comfortable. Discussed care plan of adding sedation around the clock, increasing his pain meds, and decreasing further his fluids. She will contact and, and give the update, and will continue with her daily visits. Impression and Recommendations - Palliative Care Impression: This is a 67-year-old gentleman with advanced stage IV metastatic esophageal cancer, with known fungating tumor bottom third of his esophagus. He also has bone and spinal metastases as well as lung metastases. I suspect he is having bleeding from his tumor, as he presents with increased nausea and vomiting, coffee-ground emesis, and black GI fluid in his PEG tube. In discussion of his goals, to focus on comfort, relief of suffering, and to support his transition to dying. In speaking with his acting DPO A, Dr. Rendon, and clinical staff, will focus on comfort measures only. Recommendations/Counseling Done: 1. Pain of neoplastic origin, continue to be poorly controlled. Did find fentanyl loose on one arm, did have nurse replace with new patches and increased dose of 300 mcg. They will continue with plan milliliter of 20 mg per mils morphine for breakthrough pain or signs or symptoms of discomfort this patient is less able to respond. 2. Nausea and vomiting attributed to GI bleeding most likely from tumor. Will schedule [id number] Compazine 10 mg every 6 hours, as well as Lorazepam 1 mg every 6 hours. May medicate with Lorazepam in between scheduled Lorazepam if signs or symptoms of further distress. 3. Constipation, poorly controlled. Patient reportedly had one dark stool a few days ago. Patient still perceives himself as constipated. Will go ahead and increase MiraLAX 17 g to twice daily, and senna 2 tabs 3 times daily. I suspect the patient has active bleeding, this will act as a cathartic and can hold bowel meds then. 4. Advanced care planning. I spoke with Zuri manager social responsibility, patient is not require Medicare skilled for PT, she is following up with nursing. Discussion regarding transition to Medicaid support to allow hospice. If patient rapidly declining, may continue on comfort measures on his Medicare benefit with intermediate care. Will follow up with manager social responsibility on best strategy as well as hospice availability. If patient is imminently dying, it would not make sense to transition at this point. Patient's goals are to have suffering relieved, pain controlled, and no interference with dying process and allowing natural . Time Spent: 60 minutes with greater than 50% of this done in counseling regarding goals of care, titration of pain regimen, addition of comfort medications, coordination of care with DPOAE, clinical staff, and Dr. Rendon.
== END 2017-08-01 14:01 | disposition home or self-care (01) ==
LOC: PC 14:00
PROVIDERS: ATTEND Nurse Practitioner Adult Health
DX: Z51.5 Encounter for palliative care (principal); G89.3 Neoplasm related pain (acute) (chronic); C15.5 Malignant neoplasm of lower third of esophagus; C79.51 Secondary malignant neoplasm of bone; C78.00 Secondary malignant neoplasm of unspecified lung; K92.2 Gastrointestinal hemorrhage, unspecified; R11.2 Nausea with vomiting, unspecified; K92.0 Hematemesis; K59.03 Drug induced constipation; T40.2X5D Adverse effect of other opioids, subsequent encounter; R41.0 Disorientation, unspecified; Z93.1 Gastrostomy status; Z79.891 Long term (current) use of opiate analgesic; M62.81 Muscle weakness (generalized); R63.0 Anorexia; R63.4 Abnormal weight loss; R07.89 Other chest pain; F32.9 Major depressive disorder, single episode, unspecified; F41.9 Anxiety disorder, unspecified; Z66 Do not resuscitate
CPT/HCPCS: 99310

== ENCOUNTER 2017-08-02 10:00 | Outpatient (CLI) | payer MEDICARE ==
--- NOTE | 2017-08-02 12:09 | CONSULTATION NOTE ---
Palliative Care Follow Up - Referral Referring Provider: Rafiq Rendon MD Referral setting: [facility] Facility ([facility]) - Information Sources Records Reviewed: RN notes reviewed, Old records reviewed History obtained from: Family, Caregiver Exam limitations: Clinical condition (Patient unresponsive) - History of Present Illness Update Brief HPI Update: This is a 67-year-old gentleman who was diagnosed in May 2017 with stage IV esophageal cancer, metastasized to bone, spine, lungs, and told his prognosis was 1 year or less. His course has been complicated, and his decline in functional and cognitive status has been precipitous over the past few day; likely and he is transitioning into imminently dying. Two days ago he started GI bleeding, likely from the large, fungating, necrotic mass in the lower third of his esophagus, as evidenced by black residual fluid in his gastic tube and dark stool previous to that. Comfort and symptom control medications were increased or started for pain, N/V, and secretions. Today nursing reports no bowel movements, and no black fluid from PEG tube. He has been mostly unresponsive today, and unrousable during my visit, with only a mild stirring to my voice and touch. He is mildly restless, but mostly quiet and lying still. He has been receiving morphine every 2-3 hours. His skin is dry and slightly cool to the touch. He has significant and marked rales with respiration. Social History - Living Situation Living arrangement: assisted (Patient has previously lived at home with his partner of 25 years, Hailey Norris, who is currently in [place] and will be returning 08/07/2017.) Medications/Allergies - Medications Home Medications: Ambulatory Orders Medication Instructions Recorded Confirmed Fluoxetine HCl 20 mg PO DAILY 05/06/17 08/02/17 Hyoscyamine Sulfate 0.125 mg PO Q4H PRN 07/22/17 08/02/17 LORazepam [Ativan] 1 mg PO QID PRN 07/22/17 08/02/17 Morphine Sulfate [Morphine Sulf 20 mg PO Q1H PRN 07/22/17 08/02/17 Oral (Roxanol)] Senna [Senokot] 2 tab PO TID 07/22/17 08/02/17 Fentanyl [Fentanyl 100mcg patch] 300 mcg TD Q72H 07/26/17 08/02/17 LORazepam [Ativan] 1 mg PEG Q6HR 07/29/17 08/02/17 Acetaminophen 650 mg NJ Q6HR PRN 08/01/17 08/02/17 Fluconazole [Diflucan] 100 mg PEG DAILY 08/01/17 08/02/17 Omeprazole 20 mg PEG DAILY 08/01/17 08/02/17 Polyethylene Glycol 3350 [Miralax] 17 mg PEG BID 08/01/17 08/02/17 Prochlorperazine Maleate 10 mg PEG Q6HR 08/01/17 08/02/17 [Compazine] Furosemide [Lasix] 20 mg PEG ONCE 08/02/17 08/02/17 Potassium Chloride 20 meq PO 08/02/17 Scopolamine [Transderm-Scop] 1 patch TD Q72H 08/02/17 08/02/17 - Allergies Allergies/Adverse Reactions: Allergies Allergy/AdvReac Type Severity Reaction Status Date / Time TYLER Inhibitors AdvReac Unknown Unknown Verified 07/29/17 02:15 codeine AdvReac Unknown Unknown Verified 07/29/17 02:15 oxycodone AdvReac Unknown Unknown Verified 07/29/17 02:15 Review of Systems - Constitutional Constitutional: reports: Weight loss, Other (Non responsive) - Eyes Eyes: reports: Corrective lenses - Respiratory Respiratory: reports: Other. denies: Cough - Gastrointestinal Gastrointestinal: reports: Poor appetite. denies: Black stools (none today so far), Nausea (none today, per nursing), Vomiting (none today, per nursing) - Integumentary Integumentary: reports: Other (Coccyx wound is deeper (was 0.2, now 0.4), red/ pink area is larger, per nursing. Heels look good) - Endocrine Endocrine: reports: Other (blood glucose 170 this morning) - Other Findings Other Findings: Unable to obtain from patient; he is non-rousable. ROS obtained from nursing. Physical Exam - Vital Signs Temperature: 98.5 F Pulse Rate: 102 O2 Saturation: 80 Blood Pressure: 134/80 - Physical Exam General Appearance: positive: Mild distress (some restlessness) Eyes Bilateral: positive: No lid inflammation, Other (Did not open eyes) ENT: positive: Oral lesions, Dry mucous membranes Neck: positive: Trachea midline, Stiff neck Cardiovascular: positive: Tachycardia Respiratory: positive: Rales Abdomen: positive: Non-tender, Abnml bowel sounds (No bowel sounds), Other (PEG tube clean, no residual black fluid.) Skin: positive: Pallor, Dryness, Pressure wound (Coccyx wound 1cmx0.5x.04cm, white yellow base with rolled edge. No induration. Maeve-wound slow blanching. Redness 9x8.5cm. No Odor or drainage. Reported by Nursing.) Extremities: positive: Pedal edema (minimal) Neurologic/Psychiatric: positive: Disoriented to person, Disoriented to place, Disoriented to time Palliative Care - POLST Patient has POLST: Yes POLST Status: DNR, Comfort Measures Pain: Comment (He is receiving 20mg morphine Q2-3 hours plus 300mcg fentanyl patch.) Tiredness/Fatigue: None, Comment (In a coma, not rousable currently) Drowsiness/Sedation: None (improved, no N/V currently) Anxiety: Moderate (4-6) (receiving lorazepam routinely Q6hr and prn) Dyspnea: Mild (1-3) Performance Status: Previous level of function prior to this episode: Bedbound, awake and conscious , but confused with medications and pain. Current level of functioning: Minimally responsive, non-rousable, no oral intake , bedbound. Palliative Care Performance Status: 10%. Life expectancy: hours to days. - Palliative Care Discussion: Surrogate decision maker: Friend/partner/DPOA Hailey Norris [phone]. She is in [place] for two weeks. During her absence, her sister is the acting DPOA from 07/25/17 to 08/07/17: Italo Solo: home [phone]. . Patient/Family understanding of the illness: Discussed his prognosis with Italo and advised her he is in imminent dying process, it's likely hours to days, and she understands. She and her plan to visit him today, understanding he may not be awake They have informed Hailey of his declining status and imminent dying. She is due back from [place] in 5 days, and they are aware that it is possible he will not survive that long. Information preferences: Keep Italo informed of his status and any updates. Most important goals: Comfort and reduction of suffering during the dying process, provide support and comfort to patient and to his DPOA/friends. He currently is not conscious, nor experiencing nausea or vomiting and not indicating abdominal pain. Impression and Recommendations - Palliative Care Impression: This is a 67-year-old gentleman with end-state metastatic esophageal cancer, with known fungating tumor in the bottom third of his esophagus. He has bone and spinal metastases as well as lung metastases. He has been bleeding from the tumor, as evidenced by recent black stools and residuals from gastric tube. The goal is symptom and pain management and focusing on his comfort and relieving suffering as he transitions into active dying. DPOA, staff, and his PCP are in agreement on focusing on comfort. Recommendations/Counseling Done: 1. Pain, esophageal cancer, metastasized: Focus on comfort measures. Fentanyl transdermal 300mcg and morphine 20mg Q2-3 hours for breakthrough pain. 2. Anxiety: Continue lorazepam 1mg Q6 hrs routine and 1mg hourly as needed. 3. N/V: Controlled. Continue prochlorperazine. 4. Secretions: Start scopalomine patch Q72hrs, and discontinue hyoscyamine tablets 4 hours after starting the patch. Educated nursing on repositioning his head and neck to achieve a chin tilt that maximizes breathing and alleviates the breath "rattle." 5. Constipation: No bowel movements, also no tarry stools today. Continue Miralax BID and Senna 2 tablets TID. 6. Advanced care planning: Due to rapid decline, continue patient on comfort measures on his Medicare benefit with [facility]. He is imminently dying and so transition into Hospice does not make sense time sanchez. Patient's goals, with DPOA approval, are relief of suffering and pain and allow the dying process to proceed naturally. Time Spent: 45 minutes with greater than 50% of this done in counseling regarding titrating pharmaceuticals for secretions and rales/moist lungs, oral care and other comfort measures, and coordination with clinical staff and DPOA.
== END 2017-08-02 10:01 | disposition home or self-care (01) ==
LOC: PC 10:00
PROVIDERS: ATTEND Nurse Practitioner
DX: Z51.5 Encounter for palliative care (principal); G89.3 Neoplasm related pain (acute) (chronic); C15.5 Malignant neoplasm of lower third of esophagus; C79.51 Secondary malignant neoplasm of bone; C78.00 Secondary malignant neoplasm of unspecified lung; F41.9 Anxiety disorder, unspecified; R11.2 Nausea with vomiting, unspecified; K59.03 Drug induced constipation; T40.2X5D Adverse effect of other opioids, subsequent encounter; R40.20 Unspecified coma; Z79.891 Long term (current) use of opiate analgesic; R63.4 Abnormal weight loss; R63.0 Anorexia; Z93.1 Gastrostomy status; L89.150 Pressure ulcer of sacral region, unstageable; Z66 Do not resuscitate; R41.0 Disorientation, unspecified; Z74.01 Bed confinement status
CPT/HCPCS: 99310

== ENCOUNTER 2017-08-03 10:30 | Outpatient (CLI) | payer MEDICARE ==
--- NOTE | 2017-08-03 15:17 | CONSULTATION NOTE ---
Palliative Care Follow Up - Referral Referring Provider: Dr. Rendon Time of Visit: [id number] Referral setting: Custodial Facility Referral Reason: Metastatic Esophageal Cancer - Information Sources Records Reviewed: RN notes reviewed History obtained from: Caregiver (Clinical Staff) Exam limitations: Clinical condition (Patient imminently dying) - History of Present Illness Update Brief HPI Update: This is a complicated 67-year-old gentleman with metastatic esophageal cancer, he is known to have a large fungating necrotic bleeding esophageal mass in the lower third of his esophagus with a history of complete obstruction. He presented 3 days ago with signs and symptoms of bleeding, nausea and vomiting, and black stool. He has been transition to comfort measures and is imminently dying. He has had no further nausea and vomiting for greater than 24 hours, on his Lorazepam he has been taking a dose in between scheduled, his oral secretions are much improved and he is breathing quite comfortably. He does have some upper airway rhonchi but is not appear distressed by this. Earlier today they did have some trouble with his G-tube, currently now it is working without trouble. Checking for residual I did remove 200 mg of dark black fluid and suspect he has some obstructive symptoms. He does not arouse with stimulation. He has been sleeping quietly through the night. With signs or symptoms of restlessness or distress patients have been medicating him appropriately. The goal is to ease his suffering, and provide him relief of his pain. Social History - Living Situation Living arrangement: [facility] (Patient has been here for care, now EOL for the last several weeks) Support System: Patient had previously lived at home with partner 25 years, she is currently traveling in [place], she is due to come back 08/07. She is aware that he most likely will while she is gone. Her sister Italo has been providing oversight and support for patient to this process. Medications/Allergies - Medications Home Medications: Ambulatory Orders Medication Instructions Recorded Confirmed LORazepam [Ativan] 1 mg PO QID PRN 07/22/17 08/03/17 Morphine Sulfate [Morphine Sulf 20 mg PEG Q1H PRN 07/22/17 08/03/17 Oral (Roxanol)] Fentanyl [Fentanyl 100mcg patch] 300 mcg TD Q72H 07/26/17 08/03/17 LORazepam [Ativan] 2 mg PEG Q6HR 07/29/17 08/03/17 Acetaminophen 650 mg VA Q6HR PRN 08/01/17 08/03/17 Furosemide [Lasix] 20 mg PEG DAILY 08/02/17 08/03/17 Scopolamine [Transderm-Scop] 1 patch TD Q72H 08/02/17 08/02/17 - Allergies Allergies/Adverse Reactions: Allergies Allergy/AdvReac Type Severity Reaction Status Date / Time TYLER Inhibitors AdvReac Unknown Unknown Verified 07/29/17 02:15 codeine AdvReac Unknown Unknown Verified 07/29/17 02:15 oxycodone AdvReac Unknown Unknown Verified 07/29/17 02:15 Review of Systems - Other Findings Other Findings: Patient unable to participate in ROS, follow up with caregiver, has seemed more comfortable this am. Unfortunately did not apply patch until early am of scopalamine. They are doing frequent checks for comfort. Physical Exam - Vital Signs Temperature: 97.7 C Pulse Rate: 108 Respiratory Rate: 20 (irreg with apnea) O2 Saturation: 95 (ra) Blood Pressure: 102/52 - Physical Exam General Appearance: positive: Nonresponsive Eyes Bilateral: positive: Other (eyes closed) ENT: positive: Dry mucous membranes, Other (less lesions/white plaques with diflucan) Neck: positive: Trachea midline, Stiff neck (hyperextended to manage secretions) Cardiovascular: positive: Irregular, Tachycardia, Other (mottling noted in knees ) Respiratory: positive: No respiratory distress, Rhonchi (upper airways only;). negative: Rales Abdomen: positive: Abnml bowel sounds (decreased; no further stooling but does not seem distressed, stomach flat;removed about 200 mls dark fluid residual from PEG tube) Skin: positive: Mottled, Pallor, Wound (dressing intact on back), Pressure wound Extremities: positive: No pedal edema, Other (left foot very cold to touch) Neurologic/Psychiatric: positive: Other (nonresponstive) Comments/Other: osborn with dark brown urine output; unclear if decreasing amounts about 400 ml in bag not emptied Palliative Care - POLST Patient has POLST: Yes POLST Status: DNR Pain: Comment (nonverbal pain behaviors resolved; staff medicating with MS if noted; peaceful at visit) Performance Status: Patient needing oral care/total assist with turning - Palliative Care Discussion: The patient reassured that we are monitoring signs or symptoms of discomfort, using medications to make sure he is relaxed and pain-free, and that he is well loved and cared for despite being nonresponsive. I did call his DPOA Italo, reviewed his current status today, that he appeared quiet and peaceful, and had been a difficult visit for her yesterday. Provided anticipatory guidance regarding signs and symptoms, that is probably still within hours to days. Did give her permission if she did not want to come, that I had reassured him about family support. She has been keeping and his lifelong partner updated with status. Continue to provide support and empathetic listening. Impression and Recommendations - Palliative Care Impression: This is a 67-year-old gentleman with advanced stage IV metastatic esophageal cancer, with known fungating tumor at the bottom third of his esophagus. He also has bone and spinal metastases as well as lung metastases. The suspicion is he does have bleeding from his tumor, as he continues to imminently decline. In discussion of his goals the decision was made to focus on comfort and relief of suffering, today I find him quite comfortable without respiratory distress or signs or symptoms of anxiety. Recommendations/Counseling Done: 1 pain of neoplastic origin, patient does appear to be comfortable today. He is on fentanyl 300 mcg every 72 hours. He is receiving 1 mL 20 mg of morphine as needed for nonverbal signs of discomfort or distress. 2. Nausea and vomiting attributed to GI bleeding most likely from tumor. Patient without any vomiting 24 hours. Will limit the number of medications and fluids put into his GI tract. Did find almost 200 residual black fluid this was removed, most likely is still having some obstructive symptoms. Minimizing medications. Will increase the Lorazepam to cover any likelihood of recurrent nausea vomiting. 3. Oral secretions. Currently improved with initiation of the scopalamine patch. Will have them use PEG tube for comfort medications to limit fluid / secretions. 4. Advanced care planning. Patient will stay there under Medicare skilled. I have been in touch with Italo oSlo acting DPOA, did update on current status anticipatory guidance was provided as well as instruction to clinical staff. Time Spent: Time spent 45 minutes with greater than 50% of this done in counseling regarding management of symptoms with both clinical staff and DPOA as well as coordination of care and anticipatory guidance was provided again both the clinical staff and to the DPOA
== END 2017-08-03 10:31 | disposition home or self-care (01) ==
LOC: PC 10:30
PROVIDERS: ATTEND Nurse Practitioner Adult Health
DX: Z51.5 Encounter for palliative care (principal); G89.3 Neoplasm related pain (acute) (chronic); C15.5 Malignant neoplasm of lower third of esophagus; C79.51 Secondary malignant neoplasm of bone; C78.00 Secondary malignant neoplasm of unspecified lung; R11.2 Nausea with vomiting, unspecified; K92.0 Hematemesis; K92.2 Gastrointestinal hemorrhage, unspecified; Z93.1 Gastrostomy status; Z79.891 Long term (current) use of opiate analgesic; K92.1 Melena; Z66 Do not resuscitate; R40.20 Unspecified coma
CPT/HCPCS: 99310